=== PATIENT | female | born 2000 | race Hispanic/Latino ===

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

== ENCOUNTER 2021-01-05 02:44 | Emergency (ER) | payer BC ==
[2021-01-05] MEDS ORDERED: ACETAMINOPHEN 325 MG TABLET ONE (04:04)
[2021-01-05] MEDS ORDERED: ONDANSETRON 4 MG/2 ML VIAL ONE (04:05)
[2021-01-05] MEDS ORDERED: NA CHLORIDE 0.9% 1,000 ML ONE (04:05)
[2021-01-05] MEDS ORDERED: KETOROLAC 30 MG/ML INJ ONE (04:05)
[2021-01-05 05:09] LABS: Absolute Lymphocytes (CBC) 1.9 K/uL (0.7-4.9); Basophils % 0.8 % (0-1.3); Hematocrit 30.1 % (36.0-45.0); Lymphocytes % 40.3 % (15.3-44.8); RBC Red Blood Cell Count 3.67 M/uL (3.86-4.86)
[2021-01-05 05:17] LABS: ALT/SGPT 98 U/L (12-78); AST/SGOT 60 U/L (15-37); Albumin 3.2 g/dL (3.4-5.0); Alkaline Phosphatase 152 U/L (45-117); BUN Blood Urea Nitrogen 9 mg/dL (7-18); Bicarbonate 25 mmol/L (21-32); Bilirubin Total 0.2 mg/dL (0.2-1.0); Glucose Level 109 mg/dL (74-106); Potassium 3.8 mmol/L (3.5-5.1); Protein, Total 6.7 g/dL (6.4-8.2); Sodium Level 141 mmol/L (136-145)
--- NOTE | 2021-01-05 06:11 | EDPHYS ---
Physician Documentation [facility] Name: Joanie Hodge Age: 20 yrs Sex: Female : 2000 Arrival Date: 01/05/2021 Time: 02:49 Bed External Waiting Private MD: ED Physician Mark Phillip HPI: 01/05 03:24 This 20 yrs old Female presents to ER via Ambulatory with complaints of suzie Headache > 24hrs Old, Diarrhea. 03:24 The patient complains of pain to the top of head, forehead, left frontal area, left suzie side of the back of head, left occipital area, left base of the skull, right frontal area, right side of the back of head, right occipital area and right base of the skull. 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 - Social history:: Smoking status: Patient denies any tobacco usage or history of. ROS: 03:24 Constitutional: Negative for fever, chills, and weight loss, Eyes: Negative for injury, suzie pain, redness, and discharge, Neck: Negative for injury, pain, and swelling, Cardiovascular: Negative for chest pain, palpitations, and edema, Respiratory: Negative for shortness of breath, cough, wheezing, and pleuritic chest pain, Abdomen/GI: Negative for abdominal pain, nausea, vomiting, diarrhea, and constipation, Back: Negative for injury and pain, : Negative for injury, bleeding, discharge, and swelling, MS/Extremity: Negative for injury and deformity, Skin: Negative for injury, rash, and discoloration, Psych: Negative for depression, anxiety, suicide ideation, homicidal ideation, and hallucinations, Allergy/Immunology: Negative for hives, rash, and allergies, Endocrine: Negative for neck swelling, polydipsia, polyuria, polyphagia, and marked weight changes. 03:24 ENT: Positive for sore throat. 03:24 Abdomen/GI: Positive for diarrhea. 03:24 Neuro: Positive for headache. Exam: 03:24 Constitutional: This is a well developed, well nourished patient who is awake, alert, suzie and in no acute distress. Head/Face: Normocephalic, atraumatic. Eyes: Pupils equal round and reactive to light, extra-ocular motions intact. Lids and lashes normal. Conjunctiva and sclera are non-icteric and not injected. Cornea within normal limits. Periorbital areas with no swelling, redness, or edema. ENT: Nares patent. No nasal discharge, no septal abnormalities noted. Tympanic membranes are normal and external auditory canals are clear. Oropharynx with no redness, swelling, or masses, exudates, or evidence of obstruction, uvula midline. Mucous membranes moist. Neck: Trachea midline, no thyromegaly or masses palpated, and no cervical lymphadenopathy. Supple, full range of motion without nuchal rigidity, or vertebral point tenderness. No Meningismus. Chest/axilla: Normal chest wall appearance and motion. Nontender with no deformity. No lesions are appreciated. Cardiovascular: Regular rate and rhythm with a normal S1 and S2. No gallops, murmurs, or rubs. Normal PMI, no JVD. No pulse deficits. Respiratory: Lungs have equal breath sounds bilaterally, clear to auscultation and percussion. No rales, rhonchi or wheezes noted. No increased work of breathing, no retractions or nasal flaring. Abdomen/GI: Soft, non-tender, with normal bowel sounds. No distension or tympany. No guarding or rebound. No evidence of tenderness throughout. Back: No spinal tenderness. No costovertebral tenderness. Full range of motion. Skin: Warm, dry with normal turgor. Normal color with no rashes, no lesions, and no evidence of cellulitis. MS/ Extremity: Pulses equal, no cyanosis. Neurovascular intact. Full, normal range of motion. Neuro: Awake and alert, GCS 15, oriented to person, place, time, and situation. Cranial nerves II-XII grossly intact. Motor strength 5/5 in all extremities. Sensory grossly intact. Cerebellar exam normal. Normal gait. Psych: Awake, alert, with orientation to person, place and time. Behavior, mood, and affect are within normal limits. 03:24 Neck: ROM/movement: no acute changes, pain, is not appreciated, Meningeal signs: are not present. 03:24 Musculoskeletal/extremity: DVT Exam: No signs of deep vein thrombosis. no pain, no swelling, no tenderness, negative Homans' sign noted on exam, no appreciated bluish discoloration, no erythema, no increased warmth. Vital Signs: 02:52 BP 118 / 78; Pulse 96; Resp 18; Temp 98.9; Pulse Ox 100% on R/A; Weight 68.04 kg; wg Height 5 ft. 5 in. (165.10 cm); Pain 10/10; 03:19 BP 114 / 72; Pulse 98; Resp 20; Temp 98.9; Pulse Ox 100% ; Weight 68.04 kg; Height 5 wr ft. 5 in. (165.10 cm); Pain 10/10; 04:30 Pain 6/10; wr 04:30 Pain 6/10; wr 05:52 BP 90 / 60; Pulse 90; Resp 18; Temp 97.7; Pulse Ox 100% ; wr 03:19 Body Mass Index 24.96 (68.04 kg, 165.10 cm) wr [place] Coma Score: 03:26 Eye Response: spontaneous(4). Verbal Response: oriented(5). Motor Response: obeys [facility] commands(6). Total: 15. MDM: 03:11 Patient medically screened. suzie 03:26 Differential diagnosis: cluster headache, meningitis, migraine, neoplasm, subarachnoid suize bleed, subdural hematoma, temporal arteritis, tension headache, trigeminal neuralgia, vasomotor headache. Data reviewed: vital signs, nurses notes, lab test result(s). 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 Counseling: I had a detailed discussion with the patient and/or guardian regarding: the historical points, exam findings, and any diagnostic results supporting the discharge/admit diagnosis, lab results, radiology results. 01/05 03:24 Order name: CBC with Diff; Complete Time: 05:18 [facility] 01/05 03:24 Order name: Comprehensive Metabolic Panel; Complete Time: 05:18 [facility] 01/05 03:24 Order name: Strep [facility] 01/05 03:25 Order name: Group A Streptococcus Rapid Sc; Complete Time: 05:18 EDMT 01/05 05:04 Order name: Throat Culture EDMT 01/05 03:24 Order name: Urine Dipstick-Ancillary (obtain specimen) [facility] 01/05 03:24 Order name: Urine Test (obtain specimen) [facility] 01/05 03:40 Order name: CT Head Brain wo Cont [facility] 01/05 05:59 Order name: SARS-COV-2 RT PCR; Complete Time: 06:09 EDMS Administered Medications: 03:30 Drug: Tylenol 650 mg Route: PO; wr 03:45 Drug: NS 0.9% 1000 ml Route: IV; Rate: 1 bolus; Site: right antecubital; wr 03:48 Drug: Zofran (Ondansetron) 4 mg Route: IVP; Site: right antecubital; wr 04:30 Follow up: Pain 6/10 Adult wr 03:50 Drug: Ketorolac 30 mg Route: IVP; Site: right antecubital; wr 04:30 Follow up: Pain 09/10 Adult wr Disposition Summary: 01/05/21 06:10 Discharge Ordered Location: Home suzie Problem: new uszie Symptoms: have improved suzie Condition: Stable suzie Diagnosis - Diarrhea, unspecified suzie - Acute pharyngitis, unspecified suzie - Headache suzie Followup: suzie - With: Private Physician - When: 2 - 3 days - Reason: Recheck today's complaints, Continuance of care, Re-evaluation by your physician Followup: suzie - With: Sonny Zabala MD - When: 2 - 3 days - Reason: Recheck today's complaints, Re-evaluation by your physician Discharge Instructions: - Discharge Summary Sheet suzie - Food Choices to Help Relieve Diarrhea, Adult suzie - Diarrhea, Adult suzie - General Headache Without Cause suzie - Pharyngitis suzie - Migraine Headache suzie - Diarrhea, Adult, Vhif-lf-Posn suzie - General Headache Without Cause, Qyzi-[id number]-[id number] suzie - Form - Excuse from Work, School, or Physical Activity wr Forms: - Medication Reconciliation Form [facility] - Thank You Letter [facility] - Antibiotic Education [facility] - Prescription Opioid Use [facility] Prescriptions: - Ibuprofen 600 mg Oral Tablet - take 1 tablet by ORAL route every 6 hours As needed take with food; 30 tablet; [facility] Refills: 0, Product Selection Permitted - Zofran 4 mg Oral Tablet - take 1 tablet by ORAL route every 12 hours As needed; 20 tablet; Refills: 0, suzie Product Selection Permitted Signatures: Dispatcher [employer] EDMS Mark Phillip MD MD cha Gamba, Liam, RN wg Robinson, Willena wr Corrections: (The following items were deleted from the chart) 04:24 03:09 CORONAVIRUS+MR.LAB.BRZ ordered. EDMS EDMS
--- NOTE | 2021-01-05 06:11 | ER ---
Nurse's Notes [facility] Name: Joanie Hodge Age: 20 yrs Sex: Female : 2000 Arrival Date: 01/05/2021 Time: 02:49 Bed External Waiting Private MD: Diagnosis: Diarrhea, unspecified;Acute pharyngitis, unspecified;Headache Presentation: 01/05 02:52 Chief complaint: Patient states: Pt states she has had a headache for the past 3 days. wg Pt now having a sore throat and diarrhea. Pt denies N/V, abd pain and SOB. Pt has a hx of headaches and this is similar to those in the past. Pt has not taken anything [employer]. Pt denies being febrile or having chills. Coronavirus screen: Vaccine status: Patient reports being unvaccinated. Client denies travel out of the [place] in the last 14 days. Client presents with at least one sign or symptom that may indicate coronavirus-19. Ebola Screen: Patient negative for fever greater than or equal to 101.5 degrees Fahrenheit, and additional compatible Ebola Virus Disease symptoms Patient denies exposure to infectious person. Patient denies travel to an Ebola-affected area in the 21 days before illness onset. Initial Sepsis Screen: Does the patient meet any 2 criteria? No. Patient's initial sepsis screen is negative. Does the patient have a suspected source of infection? No. Patient's initial sepsis screen is negative. Risk Assessment: Do you want to hurt yourself or someone else? Patient reports no desire to harm self or others. Onset of symptoms was January 01, 2021. 02:52 Method Of Arrival: Ambulatory 02:52 Acuity: ASHLEY 3 Triage Assessment: 02:55 Headache History: The patient has had previous headaches and this one is similar to previous episodes. General: Appears uncomfortable, well groomed, well developed, Behavior is calm, cooperative, appropriate for age. Pain: Complains of pain in "entire head" Pain currently is 10 out of 10 on a pain scale. Pain began 2-3 days ago. Also complains of no other associated symptoms. Neuro: No deficits noted. Reports Denies weakness blurred vision dizziness, numbness. 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 - Social history:: Smoking status: Patient denies any tobacco usage or history of. Screenin:17 Abuse screen: Denies. Nutritional screening: No deficits noted. wr 03:18 Tuberculosis screening: No symptoms or risk factors identified. wr 03:19 Fall Risk None identified. wr Assessment: 03:21 Reassessment: Alert and oriented x 4 .C/O Migraine Headache x 3 days,Sore Throat ,and wr one loose Diarrhea ,Vital Sign's.. General: Appears well groomed, well developed, Behavior is cooperative. Pain: Pain began 2-3 days ago. Is Alleviated by medications, repositioning, Aggravated by exercise, increased activity, repositioning. 05:53 Reassessment: Patient have voided/urinated. Patient refused in and out cath.. wr 06:15 Reassessment: Patient appears in no apparent distress at this time. Patient said her wr monthly period is irregular that she dint have a period every month. She did not give urine for test.. Vital Signs: 02:52 BP 118 / 78; Pulse 96; Resp 18; Temp 98.9; Pulse Ox 100% on R/A; Weight 68.04 kg; wg Height 5 ft. 5 in. (165.10 cm); Pain 10/10; 03:19 BP 114 / 72; Pulse 98; Resp 20; Temp 98.9; Pulse Ox 100% ; Weight 68.04 kg; Height 5 wr ft. 5 in. (165.10 cm); Pain 10/10; 04:30 Pain 6/10; wr 04:30 Pain 6/10; wr 05:52 BP 90 / 60; Pulse 90; Resp 18; Temp 97.7; Pulse Ox 100% ; wr 03:19 Body Mass Index 24.96 (68.04 kg, 165.10 cm) wr [place] Coma Score: 03:26 Eye Response: spontaneous(4). Verbal Response: oriented(5). Motor Response: obeys suzie commands(6). Total: 15. ED Course: 02:49 Patient arrived in ED. wm 02:55 Triage completed. wg 02:55 Arm band placed on right wrist. wg 03:05 Mark Phillip MD is Attending Physician. [facility] 03:56 CT Head Brain wo Cont In Process Unspecified. EDMS 04:23 Strep Sent. wr 04:23 Group A Streptococcus Rapid Sc Sent. wr 04:23 Comprehensive Metabolic Panel Sent. wr 04:24 CBC with Diff Sent. wr 04:26 Inserted saline lock: 20 gauge in right antecubital area, using aseptic technique. wr 06:20 Sonny Zabala MD is Referral Physician. [facility] 06:53 Filipe Davila is Primary Nurse. wr Administered Medications: 03:30 Drug: Tylenol 650 mg Route: PO; wr 03:45 Drug: NS 0.9% 1000 ml Route: IV; Rate: 1 bolus; Site: right antecubital; wr 03:48 Drug: Zofran (Ondansetron) 4 mg Route: IVP; Site: right antecubital; wr 04:30 Follow up: Pain 6/10 Adult wr 03:50 Drug: Ketorolac 30 mg Route: IVP; Site: right antecubital; wr 04:30 Follow up: Pain 6/10 Adult wr Outcome: 06:10 Discharge ordered by . [facility] 06:53 Patient left the ED. Signatures: Dispatcher [employer] EDMS Mark Phillip MD MD cha Marsh, Wendy wm Gamba, Liam, RN wg Robinson, Willena Corrections: (The following items were deleted from the chart) 04:24 04:24 CORONAVIRUS+ drawn and sent. EDMS
[2021-01-05 06:57] VITALS: O2SAT 100
[2021-01-05 07:01] VITALS: BP 90/60; TEMP 97.7
--- NOTE | 2021-01-05 10:45 | RAD REPORT ---
EXAM DESCRIPTION: CT - Head Brain Wo Cont - 01/05/2021 6:40 am CLINICAL HISTORY: The patient is 20 years old and is Female; HEADACHE TECHNIQUE: Axial computed tomography images of the head/brain without intravenous contrast. Sagitt al and coronal reformatted images were created and reviewed. This CT exam was performed using one o r more of the following dose reduction techniques: automated exposure control, adjustment of the mA and/or kV according to patient size, and/or use of iterative reconstruction technique. COMPARISON: No relevant prior studies available. FINDINGS: Brain: Unremarkable. No hemorrhage. No significant white matter disease. No edema. Ventricles: Unremarkable. No ventriculomegaly. Bones/joints: Unremarkable. No acute fracture. Soft tissues: Unremarkable. Sinuses: Unremarkable as visualized. Mastoid air cells: Unremarkable as visualized. No mastoid effusion. IMPRESSION: No acute intracranial abnormality. Electronically signed by: Franky Bee MD 01/05/2021 4:32 AM CDT Due to temporary technical issues with the PACS/Fluency reporting system, reports are being signed by the in house radiologists without review as a courtesy to insure prompt reporting. The interpreting radiologist is fully responsible for the content of the report.
== END 2021-01-05 06:53 | disposition home or self-care (01) ==
LOC: ER 02:44
DX: J02.9 Acute pharyngitis, unspecified (principal); R19.7 Diarrhea, unspecified; Z20.822 Contact with and (suspected) exposure to COVID-19
CPT/HCPCS: 87070; 85025; 36415; 87081; 80053; 70450; 96375; 96374; 99284; U0003; J7030; J2405